=== PATIENT | female | born 2005 | race Caucasian/White ===

== ENCOUNTER → 2024-10-11 | Outpatient (CLI) | payer OTHER ==
--- NOTE | 2024-10-11 11:12 | XR ---
KUB. CLINICAL INDICATION: Female, 18 years old with history of R300 DYSIRIA R350 FREQUENCY OF MICTURITUIN, Abdominal pain. COMPARISON: None. TECHNIQUE: 2 supine views of the abdomen were obtained. FINDINGS: The lung bases are clear. The bowel gas pattern is nonspecific and there is no evidence of obstruction. No suspicious abdominal or pelvic calcifications are seen. The osseous structures are intact. IMPRESSION: Nonspecific abdomen without evidence of bowel obstruction or fecal impaction. [facility], , 10/11/2024 11:10 AM
== END | disposition home or self-care (01) ==
LOC: LABWHC1 10:36
PROVIDERS: ATTEND Registered Nurse
DX: R30.0 Dysuria (principal); R35.0 Frequency of micturition
CPT/HCPCS: 74018

== ENCOUNTER 2024-11-11 08:41 | Emergency (ER) | payer OTHER ==
[2024-11-11 08:50] VITALS: RESP 18
--- NOTE | 2024-11-11 09:01 | ED ---
Female Urogenital HPI - General Chief complaint: Urogenital Stated complaint: urogenital Time Seen by Provider: 11/11/24 09:01 Source: patient, family, RN notes reviewed Mode of arrival: ambulatory Limitations: no limitations - History of Present Illness Initial comments: 18-year-old female accompanied by her mother presented to the ER for evaluation of urinary frequency. Mother is providing HPI in its entirety as patient has a past medical history significant of autism. Mother reports no other medical history. Patient is up-to-date on childhood vaccinations. Mother reports for the past couple of months patient has been having frequent urination. She states she is scheduled to follow-up with urology out [facility] in December. She states last night patient was attempting to urinate and screaming in pain stating she cannot urinate. Mother reports patient has been complaining of intermittent abdominal pain but states she is unsure if patient is actually in pain as when she asked she is told no. Mother states she it is difficult to know exactly the issue given autism. Mother reports a normal appetite and patient has been drinking large amount of water. Patient is not sexually active, per mother. Mother denies incontinence of urine or bowels. She denies any fevers, hematuria, nausea, vomiting, constipation/diarrhea or other complaints. No indications of back pain. - Related Data Home Medications Medication Instructions Recorded Confirmed No Known Home Medications 08/05/14 08/05/14 Allergies Allergy/AdvReac Type Severity Reaction Status Date / Time No Known Allergies Allergy Verified 11/11/24 08:50 Review of Systems ROS Statement: Those systems with pertinent positive or pertinent negative responses have been documented in the HPI. ROS Other: All systems not noted in ROS Statement are negative. Past Medical History Additional Past Medical History / Comment(s): pt has autism History of Any Multi-Drug Resistant Organisms: None Reported Past Surgical History: No Surgical Hx Reported Past Anesthesia/Blood Transfusion Reactions: No Reported Reaction Additional Past Anesthesia/Blood Transfusion Reaction / Comment(s): had MRI with sedation and had difficulty coming out Past Psychological History: No Psychological Hx Reported Smoking Status: Never smoker Past Alcohol Use History: None Reported Past Drug Use History: None Reported General Exam Limitations: altered mental status (Autism) General appearance: alert, in no apparent distress Respiratory exam: Present: normal lung sounds bilaterally. Absent: respiratory distress, wheezes, rales, rhonchi, stridor Cardiovascular Exam: Present: regular rate, normal rhythm, normal heart sounds. Absent: systolic murmur, diastolic murmur, rubs, gallop, clicks GI/Abdominal exam: Present: soft, normal bowel sounds. Absent: distended, tenderness, guarding, rebound, rigid External exam: Present: normal external exam Neurological exam: Present: alert Skin exam: Present: warm, dry, intact, normal color. Absent: rash Course Vital Signs 11/11/24 11/11/24 08:46 10:29 Temperature 98.3 F 98.4 F Pulse Rate 88 84 Respiratory 18 18 Rate Blood Pressure 111/57 112/62 O2 Sat by Pulse 98 98 Oximetry - Reevaluation(s) Reevaluation #1: Pelvic exam chaperoned by Luke TY Medical Decision Making - Medical Decision Making Was pt. sent in by a medical professional or institution (, PA, RN CARDIOLOGY, urgent care, hospital, or jail...) When possible be specific @ -No Did you speak to anyone other than the patient for history (EMS, parent, family, police, friend...)? What history was obtained from this source @ -Patient's mother providing HPI past medical history in its entirety as patient has autism. Did you review nursing and triage notes (agree or disagree)? Why? @ -I reviewed and agree with nursing and triage notes Were old charts reviewed (outside hosp., previous admission, EMS record, old EKG, old radiological studies, urgent care reports/EKG's, jail records)? Report findings @ -No old charts were reviewed Differential Diagnosis (chest pain, altered mental status, abdominal pain women, abdominal pain men, vaginal bleeding, weakness, fever, dyspnea, syncope, headache, dizziness, GI bleed, back pain, seizure, CVA, palpatations, mental health, musculoskeletal)? @ -UTI, , urinary retention, diabetes mellitus... This list is not meant to be all-inclusive EKG interpreted by me (3pts min.). @ -None done X-rays interpreted by me (1pt min.). @ -None done CT interpreted by me (1pt min.). @ -None done U/S interpreted by me (1pt. min.). @ -None done What testing was considered but not performed or refused? (CT, X-rays, U/S, labs)? Why? @ -None What meds were considered but not given or refused? Why? @ -None Did you discuss the management of the patient with other professionals (professionals i.e. , PA, RN CARDIOLOGY, lab, RT, psych nurse, social services aide, travel nurse, teacher, chief wellness officer, caseworker protective services)? Give summary @ -Case discussed with caseworker protective services, Justine. She contacted on-call urology's office and spoke with deputy district customs director. She reports deputy district customs director states patient will be able to be seen prior to December. Urology office will reach out to mother to schedule appointment. Was smoking cessation discussed for >3mins.? @ -No Was critical care preformed (if so, how long)? @ -No Were there social determinants of health that impacted care today? How? ( Homelessness, low income, unemployed, alcoholism, drug addiction, transportation, low edu. Level, literacy, decrease access to med. care, senior living, rehab)? @ -No Was there de-escalation of care discussed even if they declined (Discuss DNR or withdrawal of care, Hospice)? DNR status @ -No What co-morbidities impacted this encounter? (DM, HTN, Smoking, COPD, CAD, Cancer, CVA, ARF, Chemo, Hep., AIDS, mental health diagnosis, sleep apnea, morbid obesity)? @ -Autism Was patient admitted / discharged? Hospital course, mention meds given and route, prescriptions, significant lab abnormalities, going to OR and other pertinent info. @ -Discharge. 18-year-old female accompanied her mother presented to the ER for evaluation of urinary frequency. Vital signs stable. On examination, patient appears well-nourished and no signs of acute distress. There is no focal abdominal tenderness on exam. No CVA tenderness. Pelvic examination unremarkable this was chaperoned by Luke TY. Speculum exam deferred given history of autism. Urinalysis unremarkable. Urine hCG negative. As mother reporting increased liquid intake and frequent urination blood sugar obtained and normal at 96. Upon reevaluation, patient resting comfortably on stretcher watching video on cell phone no signs of acute distress. Results discussed with mother, all questions answered. Advised mother to follow-up closely with urology, referral given. Strict return parameters discussed. Patient discharged in stable condition. Mother verbally expressed understanding and agreement with care plan. Case discussed with ED attending Dr. Yousif. Undiagnosed new problem with uncertain prognosis? @ -No Drug Therapy requiring intensive monitoring for toxicity (Heparin, Nitro, Insulin, Cardizem)? @ -No Were any procedures done? @ -No Diagnosis/symptom? @ -Frequent urination Acute, or Chronic, or Acute on Chronic? @ -Acute Uncomplicated (without systemic symptoms) or Complicated (systemic symptoms)? @ -Uncomplicated Side effects of treatment? @ -No Exacerbation, Progression, or Severe Exacerbation? @ -No Poses a threat to life or bodily function? How? (Chest pain, [place], [place], pneumonia, PE, COPD, DKA, ARF, appy, cholecystitis, CVA, Diverticulitis, Homicidal, Suicidal, threat to staff... and all critical care pts) @ -No - Lab Data Lab Results 11/11/24 11/11/24 11/11/24 Range/Units 09:02 09:02 09:20 POC Glucose (mg/dL) 96 (70-110) mg/dL POC Glu Fender Finisher ID Des Castellanos Urine Color Colorless Urine Appearance Clear (Clear) Urine pH 7.5 (5.0-8.0) Ur Specific [place] 1.003 (1.001-1.035) Urine Protein Negative (Negative) Urine Glucose (UA) Negative (Negative) Urine Ketones Negative (Negative) Urine Blood Negative (Negative) Urine Nitrite Negative (Negative) Urine Bilirubin Negative (Negative) Urine Urobilinogen <2.0 (<2.0) mg/dL Ur Leukocyte Esterase Negative (Negative) Urine HCG, Qual Not Detected (Not Detectd) Disposition Clinical Impression: Urinary frequency Disposition: HOME SELF-CARE Condition: Stable Instructions (If sedation given, give patient instructions): Urinary Urgency and Frequency (DC) Additional Instructions: Follow-up closely with urology. Return to the ER for any new or worsening concerns Is patient prescribed a controlled substance at d/c from ED?: No Referrals: Thanh Gaytan MD [STAFF PHYSICIAN] - As Soon As Possible ([facility] WILL REVIEW YOUR REPORTS AND CALL MOM TO MAKE AN APPOINTMENT. ) Christel Watt MD [Primary Care Provider] - 1-2 days Time of Disposition: 10:07
[2024-11-11 09:22] LABS: Glucose,Whole Blood 96 mg/dL (70-110)
[2024-11-11 09:40] LABS: Appearance,Urine Clear (Clear); Bilirubin,Urine Negative (Negative); Blood,Urine Negative (Negative); Color,Urine Colorless; Glucose,Urine (UA) Negative (Negative); Ketones,Urine Negative (Negative); Leukocyte Esterase,Urine Negative (Negative); Nitrite,Urine Negative (Negative); PH, Urine 7.5 (5.0-8.0); Protein,Urine Negative (Negative); Specific Gravity,Urine 1.003 (1.001-1.035); Urobilinogen,Urine <2.0 mg/dL (<2.0)
[2024-11-11 10:30] VITALS: BP 112/62; PULSE 84; TEMP 98.4
== END 2024-11-11 10:29 | disposition home or self-care (01) ==
LOC: EC 08:41 → EEVIPCON 08:41 → EC 10:29
DX: R35.0 Frequency of micturition (principal); F84.0 Autistic disorder
CPT/HCPCS: 36415; 81003; 81025; 99283